=== PATIENT | male | born 1960 | race Hispanic/Latino ===

== ENCOUNTER 2017-11-12 06:03 | Observation (INO) | payer OTHER ==
[2017-11-12 06:49] LABS: INR 0.95 (0.87-1.13)
[2017-11-12 06:50] LABS: BUN/Creatinine Ratio 24; Blood Urea Nitrogen 12 mg/dL (9-20); Hemolysis Index 26
[2017-11-12] MEDS ORDERED: NACL 0.9% 500 ML 500 ML IV SCH (07:00)
[2017-11-12 07:08] LABS: Basophils # (Auto) 0.1 K/mm3 (0.0-0.1); Eosinophils # (Auto) 0.3 K/mm3 (0.0-0.4); Eosinophils % (Auto) 4.4 % (0.0-4.3); Hematocrit 45.3 % (35.5-45.6); Hemoglobin 15.2 gm/dl (11.8-15.2); Lymphocytes # (Auto) 2.8 K/mm3 (1.2-5.4); Lymphocytes % (Auto) 35.3 % (13.4-35.0); Mean Corpuscular HGB Conc 34 % (32-34); Mean Corpuscular Hemoglobin 31 pg (28-32); Mean Corpuscular Volume 92 fl (84-94); Monocytes # (Auto) 0.7 K/mm3 (0.0-0.8); Monocytes % (Auto) 9.2 % (0.0-7.3); Platelet Count 282 K/mm3 (140-440); Red Cell Distribution Width 15.7 % (13.2-15.2)
[2017-11-12] MEDS ORDERED: NITROGLYCERIN SYRINGE 3 ML ONE ×2 (07:11→12:06)
[2017-11-12] MEDS ORDERED: HEPARIN 10,000 UNITS/10 ML ONE ×2 (07:11→13:28)
[2017-11-12] MEDS ORDERED: XYLOCAINE 2% INFILTRATI ONE (07:11)
[2017-11-12] MEDS ORDERED: HEPARIN/NS 5000 UNIT/500ML(CATH LAB) 1,000 ML IR ONE (07:11)
[2017-11-12] MEDS ORDERED: SUBLIMAZE ONE ×2 (07:12→13:15)
[2017-11-12] MEDS ORDERED: VERSED ONE (07:12)
[2017-11-12 07:14] LABS: Basophils % (Auto) 0.8 % (0.0-1.8)
[2017-11-12] MEDS: CALAN ONE ×2 (07:40→18:46)
[2017-11-12] MEDS ORDERED: PLAVIX ONE (11:22)
[2017-11-12] MEDS ORDERED: PLAVIX PO ONE (11:26)
[2017-11-12] MEDS: HEPARIN/NS 5000 UNIT/500ML(CATH LAB) 1,000 ML IR ONE ×2 (12:28→12:43)
[2017-11-12] MEDS: SUBLIMAZE ONE ×2 (12:29→12:44)
[2017-11-12] MEDS: XYLOCAINE 2% INFILTRATI ONE ×2 (12:29→12:44)
[2017-11-12] MEDS: VERSED ONE ×2 (12:29→12:44)
[2017-11-12] MEDS: HEPARIN 10,000 UNITS/10 ML ONE ×2 (12:31→12:46)
--- NOTE | 2017-11-12 13:22 | Cardiac Catherization Report ---
CORONARY ANGIOPLASTY REPORT REASON FOR PROCEDURE: The patient is a 57-year-old man with unstable angina, history of prior stents in the LAD and circumflex. He presented for an outpatient cardiac catheterization, which revealed a de marko, greater than 95% stenosis of the mid right coronary artery. He was referred for interventional consultation. We also found moderate severity, proximal and distal border restenosis of the LAD stent. Recommendation was for coronary intervention to the right coronary artery, with aggressive risk factor modification and medical therapy for the LAD disease. Risks and benefits were discussed with the patient and he consented to proceed. PROCEDURE: The patient was prepped and draped in a sterile fashion after informed consent. The right femoral artery was entered using Seldinger technique followed by placement of a 6-Romanian sheath. We selected a #4 right Christian guiding catheter and advanced right coronary ostium. A 0.014 inch Head Of It 50 guidewire was introduced across the lesional segment. Following that, a 3.5 mm balloon catheter was used to predilate the stenosis. We then deployed a 3.5 x 12 mm bare metal stent, across the lesional segment. The stent was deployed to optimal pressures. Following stenting, there was an excellent angiographic result, 0 residual stenosis and MARLEN 3 flow. The procedure was well tolerated by the patient and no complications. CONCLUSION: Successful angioplasty and stenting of the mid right coronary artery, excellent angiographic result following deployment of a 3.5 mm bare-metal stent. JOB# [id number] YANIRA/BRIELLE
--- NOTE | 2017-11-12 13:28 | Event Note ---
Date: 11/12/17 Patient underwent outpatient cardiac catheterization followed by coronary stenting of a greater than 95% stenosis of the mid right coronary artery. A 3.5 mm bare metal stent was deployed with excellent angiographic result. There were no complications. He is admitted for 23 hour post PCI observation, anticipated discharge tomorrow. On discharge, clopidogrel 75 mg daily will be added to his regimen. Follow-up will be with his primary manager policy Dr. Guallpa in one week.
[2017-11-12] MEDS ORDERED: CATAPRES ONE (13:36)
[2017-11-12] MEDS: CATAPRES PO PRN (13:40)
[2017-11-12] MEDS ORDERED: NACL 0.9% 1000 ML 1,000 ML ONE (13:42)
[2017-11-12] MEDS ORDERED: NACL 0.9% 1000 ML 1,000 ML IV SCH (14:00)
[2017-11-12] MEDS: COREG PO SCH (18:47)
[2017-11-12] MEDS: ZESTRIL PO SCH (18:47)
[2017-11-12] MEDS: ZOLOFT PO SCH (18:48)
[2017-11-12] MEDS ORDERED: PRAVACHOL PO SCH (22:00)
[2017-11-13 05:59] LABS: Basophils % (Auto) 0.6 % (0.0-1.8); Eosinophils # (Auto) 0.3 K/mm3 (0.0-0.4); Eosinophils % (Auto) 3.7 % (0.0-4.3); Hemoglobin 14.2 gm/dl (11.8-15.2); Lymphocytes # (Auto) 2.1 K/mm3 (1.2-5.4); Lymphocytes % (Auto) 26.7 % (13.4-35.0); Mean Corpuscular HGB Conc 34 % (32-34); Mean Corpuscular Hemoglobin 31 pg (28-32); Mean Corpuscular Volume 92 fl (84-94); Monocytes # (Auto) 0.7 K/mm3 (0.0-0.8); Monocytes % (Auto) 9.4 % (0.0-7.3); Platelet Count 266 K/mm3 (140-440); Red Blood Count 4.57 M/mm3 (3.65-5.03); Red Cell Distribution Width 15.5 % (13.2-15.2)
[2017-11-13] MEDS: CATAPRES PO PRN (06:03)
[2017-11-13 06:13] LABS: Creatine Kinase MB 8.4 ng/mL (0.0-4.0)
[2017-11-13 06:15] LABS: BUN/Creatinine Ratio 16; Blood Urea Nitrogen 11 mg/dL (9-20); Calcium 8.7 mg/dL (8.4-10.2); Hemolysis Index 5
--- NOTE | 2017-11-13 08:22 | XRay Report ---
Single view chest: No previous studies are available. History: Post PCI. Findings: Borderline cardiomegaly. Trachea is midline. No consolidation, pneumothorax or pleural effusion. Impression: No acute cardiopulmonary findings.
[2017-11-13 08:31] VITALS: BP 135/77
[2017-11-13] MEDS ORDERED: HALFPRIN EC PO SCH (10:00)
[2017-11-13] MEDS ORDERED: PLAVIX PO SCH (10:00)
[2017-11-13] MEDS ORDERED: NITRO DUR TD SCH (10:00)
[2017-11-13] MEDS: ZOLOFT PO SCH (11:27)
[2017-11-13] MEDS: ZESTRIL PO SCH (11:27)
[2017-11-13] MEDS: COREG PO SCH (11:28)
--- NOTE | 2017-11-13 11:45 | Short Stay Summary ---
Short Stay Documentation Date of service: 11/13/17 - History H&P: obtained from office - Allergies and Medications Current Medications: Allergies codeine Adverse Reaction (Unverified 11/12/17 06:03) Swelling Penicillins Adverse Reaction (Unverified 11/12/17 06:03) Rash BEE STING Adverse Reaction (Uncoded 11/12/17 06:04) Anaphylaxis Home Medications Medication Instructions Recorded Confirmed Last Taken Type Aspirin [Aspir-Low] 81 mg PO DAILY 11/12/17 11/12/17 11/12/17 History Carvedilol [Coreg] 3.125 mg PO DAILY 11/12/17 11/12/17 11/11/17 History Lisinopril [Zestril] 10 mg PO DAILY 11/12/17 11/12/17 11/11/17 History Nitroglycerin [Nitro Dur] 0.1 mg TRANSDERMA DAILY 11/12/17 11/12/17 11/11/17 History Pravastatin [Pravachol] 80 mg PO QHS 11/12/17 11/12/17 11/11/17 History Sertraline [Zoloft] 100 mg PO QDAY 11/12/17 11/12/17 11/12/17 History Active Medications Aspirin (Halfprin Ec) 81 mg PO DAILY [facility] Last Admin: 11/13/17 11:27 Dose: 81 mg Carvedilol (Coreg) 3.125 mg PO DAILY [facility] Last Admin: 11/13/17 11:28 Dose: 3.125 mg Clonidine HCl (Catapres) 0.1 mg PO Q4H PRN PRN Reason: Increased Blood Pressure Last Admin: 11/13/17 06:03 Dose: 0.1 mg Clopidogrel Bisulfate (Plavix) 75 mg PO QDAY [facility] Last Admin: 11/13/17 11:28 Dose: 75 mg Lisinopril (Zestril) 10 mg PO DAILY [facility] Last Admin: 11/13/17 11:27 Dose: 10 mg Nitroglycerin (Nitro Dur) 0.1 mg TD DAILY [facility] Pravastatin Sodium (Pravachol) 80 mg PO QHS [facility] Last Admin: 11/12/17 22:13 Dose: 80 mg Sertraline HCl (Zoloft) 100 mg PO QDAY [facility] Last Admin: 11/13/17 11:27 Dose: Not Given - Physical exam General appearance: no acute distress HEENT: PERRLA Lungs: Clear to auscultation Heart: Regular rate - Brief post op/procedure progress note Procedure: Patient underwent outpatient cardiac catheterization followed by coronary stenting of the mid right coronary artery stenosis. A 3.5 mm bare metal stent was deployed with excellent angiographic result. Condition: stable - Hospital course Hospital course: Stable overnight observation. - Disposition Condition at discharge: Good Disposition: [id number] TO HOME OR SELFCARE Short Stay Discharge Plan Activity: advance as tolerated Weight Bearing Status: Full Weight Bearing Diet: low fat, low cholesterol, low salt Special Instructions: smoking cessation Additional Instructions: Follow-up with his primary insulation manager, Dr. Wallis in one week. Follow up with: JUSTIN MCCLAIN FNP-[facility] [Primary Care Provider] - 7 Days CINDA WALLIS MD [Staff Physician] - 7 Days Forms: [facility] PCI D/C Instructions Prescriptions: Clopidogrel [Plavix] 75 mg PO QDAY #30 tablet
[2017-11-13 15:23] LABS: Chol/HDL Ratio 5.44 %; HDL Cholesterol 29 mg/dL (40-59); LDL Cholesterol,Direct 108 mg/dL (50-130)
== END 2017-11-13 13:12 | disposition home or self-care (01) ==
LOC: CATHLABREC 06:03 → 4A 13:23
PROVIDERS: ADMIT Internal Medicine Cardiovascular Disease; ATTEND Internal Medicine Cardiovascular Disease
DX: I25.10 Atherosclerotic heart disease of native coronary artery without angina pectoris (principal); K21.9 Gastro-esophageal reflux disease without esophagitis; I10 Essential (primary) hypertension; F32.9 Major depressive disorder, single episode, unspecified; F41.9 Anxiety disorder, unspecified; E78.5 Hyperlipidemia, unspecified; Z98.61 Coronary angioplasty status; F17.200 Nicotine dependence, unspecified, uncomplicated
CPT/HCPCS: 36415; 71045; 80048; 80061; 82550; 82553; 84484; 85025; 85347; 85610; 85730; 92928; 93005; 93010; 93458; 96374; A9270; C1725; C1760; C1769; C1876; C1887; C1894; G0378; J1644; J2250; J3010; J7030; J7040; Q9967